=== PATIENT | male | born 1970 | race Caucasian/White ===

== ENCOUNTER 2020-04-24 10:45 | Emergency (ER) | payer BC ==
[2020-04-24] MEDS ORDERED: SODIUM CHLORIDE 0.9% 500 ML 500 ML IV ONE (11:31)
[2020-04-24 11:55] LABS: Basophils % (A) 1 %; Eosinophils % (A) 1 %; HCT 50.1 % (39.0-53.0); HGB 16.3 gm/dL (13.0-17.5); Lymphocytes # (A) 0.8 k/uL (1.0-4.8); Lymphocytes % (A) 23 %; MCH 30.2 pg (25.0-35.0); MCHC 32.5 g/dL (31.0-37.0); MCV 92.7 fL (80.0-100.0); Mean Platelet Volume 7.8; Monocytes # (A) 0.3 k/uL (0-1.0); Monocytes % (A) 9 %; Neutrophils # (A) 2.3 k/uL (1.3-7.7); Neutrophils % (A) 64 %; Platelet Count 144 k/uL (150-450); RDW 12.8 % (11.5-15.5); WBC 3.6 k/uL (3.8-10.6)
--- NOTE | 2020-04-24 11:55 | XR ---
EXAMINATION TYPE: XR chest 2V DATE OF EXAM: 04/24/2020 COMPARISON: NONE HISTORY: Chest pain TECHNIQUE: Frontal and lateral views of the chest are obtained. FINDINGS: There is no focal air space opacity. No evidence for pneumothorax. No pleural effusion. The cardiac silhouette size is within normal limits. The osseous structures are grossly intact. IMPRESSION: 1. No acute cardiopulmonary process.
[2020-04-24 12:13] LABS: ALT 26 U/L (4-49); AST 26 U/L (17-59); African American GFR (CKD) >90 (>60 ml/min/1.73 sqM); Albumin 4.3 g/dL (3.5-5.0); Alkaline Phosphatase 106 U/L (38-126); Anion Gap 7 mmol/L; Blood Urea Nitrogen 13 mg/dL (9-20); Calcium 9.3 mg/dL (8.4-10.2); Carbon Dioxide 27 mmol/L (22-30); Chloride 104 mmol/L (98-107); Glucose 95 mg/dL (74-99); Non-African American GFR(CKD) >90 (>60 ml/min/1.73 sqM); Potassium 4.3 mmol/L (3.5-5.1); Sodium 138 mmol/L (137-145); Total Bilirubin 0.5 mg/dL (0.2-1.3)
--- NOTE | 2020-04-24 12:16 | ED ---
General Adult HPI - General Source: patient, RN notes reviewed, old records reviewed Mode of arrival: ambulatory Limitations: no limitations <Antwan Kaye - Last Filed: 04/24/20 12:36> <Jesenia Prajapati - Last Filed: 04/27/20 00:39> - General Chief complaint: Shortness of Breath Stated complaint: covid symtoms Time Seen by Provider: 04/24/20 11:01 - History of Present Illness Initial comments: 49-year-old male patient presents to ED for evaluation of possible coronavirus. 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 This was about 2 weeks ago. Patient reports that he drove from [place]. Reports that he has had some mild coughing and some sweats at night for the last 3 days. Reports mild waxing and waning headache. Denies any other acute complaints. Denies any chest pain or shortness of breath. Systemic: Pt denies fatigue,rash. Pt denies weakness, night sweats, weight loss. Neuro: Pt denies headache, visual disturbances, syncope or pre-syncope. HEENT: Pt denies ocular discharge or irritation, otalgia, rhinorrhea, pharyngitis or notable lymphadenopathy. Cardiopulmonary: Pt denies chest pain, SOB, heart palpitations, dyspnea on exert ion. Abdominal/GI: Pt denies abdominal pain, n/v/d. : Pt denies dysuria, burning w/ urination, frequency/urgency. Denies new onset urinary or bowel incontinence. MSK: Pt denies myalgia, loss of strength or function in extremities. Neuro: Pt denies new onset weakness, paresthesias. (Antwan Kaye) - Related Data Home Medications Medication Instructions Recorded Confirmed Acetaminophen Tab [Tylenol] 650 mg PO Q8H PRN 04/24/20 04/24/20 Ibuprofen [Motrin Ib] 400 mg PO Q8H PRN 04/24/20 04/24/20 Allergies Allergy/AdvReac Type Severity Reaction Status Date / Time No Known Allergies Allergy Verified 04/24/20 12:03 Review of Systems ROS Other: All systems not noted in ROS Statement are negative. <Antwan Kaye - Last Filed: 04/24/20 12:36> ROS Other: All systems not noted in ROS Statement are negative. <Jesenia Prajapati - Last Filed: 04/27/20 00:39> ROS Statement: Those systems with pertinent positive or pertinent negative responses have been documented in the HPI. Past Medical History Past Medical History: No Reported History Additional Past Medical History / Comment(s): pyloric stenosis History of Any Multi-Drug Resistant Organisms: None Reported Additional Past Surgical History / Comment(s): Right Wrist, Left Knee Past Psychological History: No Psychological Hx Reported Smoking Status: Never smoker Past Alcohol Use History: Daily Past Drug Use History: None Reported <Antwan Kaye - Last Filed: 04/24/20 12:36> General Exam Limitations: no limitations <Antwan Kaye - Last Filed: 04/24/20 12:36> - General Exam Comments Initial Comments: Constitutional: NAD, AOX3, Pt has pleasant affect. HEENT: NC/AT, trachea midline, neck supple, no lymphadenopathy. Posterior pharynx non erythematous, without exudates. External ears appear normal, without discharge. Mucous membranes moist. Eyes PERRLA, EOM intact. There is no scleral icterus. No pallor noted. Cardiopulmonary: RRR, no murmurs, rubs or gallops, no JVD noted. Lungs CTAB in anterior and posterior bull. No peripheral edema. Neuro: CN II-XII intact. No nuchal rigidity. No raccon eyes, no braden sign, no hemotympanum. No cervical spinal tenderness. MSK: No posterior calf tenderness bilaterally, homans sign negative bilaterally. Posterior tibialis and radial pulse +2 bilaterally. Sensation intact in upper and lower extremities. Full active ROM in upper and lower extremities, 5/5 stregnth. (Antwan Kaye) Course Vital Signs 04/24/20 04/24/20 10:55 12:30 Temperature 98.1 F 98.0 F Pulse Rate 91 80 Respiratory 16 14 Rate Blood Pressure 116/83 120/78 O2 Sat by Pulse 99 98 Oximetry Medical Decision Making - Lab Data Result diagrams: 04/24/20 11:47 04/24/20 11:47 <Antwan Kaye - Last Filed: 04/24/20 12:36> - Lab Data Result diagrams: 04/24/20 11:47 04/24/20 11:47 <Jesenia Prajapati - Last Filed: 04/27/20 00:39> - Medical Decision Making 49-year-old male patient presents ED for evaluation of possible coronavirus. Physical exam didn't display acute pathology. Laboratory investigations are notable for mild lymphocytopenia leukopenia. CMP unremarkable. Chest: Negative for acute process. Patient has for coronavirus advises self quarantined follow up with primary care provider and return for worsening symptoms. Case discussed with Dr. Prajapati. (Antwan Kaye) I was available for consultation in the emergency department. The history and physical exam were done by the midlevel provider. I was consulted for this patients care. I reviewed the case with the midlevel provider and based on their presentation of the patient, I agree with the assessment, medical decision making and plan of care as documented. Chart was dictated using evocatal dictation software. Attempts were made to correct any dictation errors however some typographical errors may persist. Patient was seen during a national state of emergency due to the Covid-19 pandemic. (Jesenia Prajapati) - Lab Data Lab Results 04/24/20 04/24/20 04/24/20 Range/Units 11:47 11:47 11:47 WBC 3.6 L (3.8-10.6) k/uL RBC 5.40 (4.30-5.90) m/uL Hgb 16.3 (13.0-17.5) gm/dL Hct 50.1 (39.0-53.0) % MCV 92.7 (80.0-100.0) fL MCH 30.2 (25.0-35.0) pg MCHC 32.5 (31.0-37.0) g/dL RDW 12.8 (11.5-15.5) % Plt Count 144 L (150-450) k/uL Neutrophils % 64 % Lymphocytes % 23 % Monocytes % 9 % Eosinophils % 1 % Basophils % 1 % Neutrophils # 2.3 (1.3-7.7) k/uL Lymphocytes # 0.8 L (1.0-4.8) k/uL Monocytes # 0.3 (0-1.0) k/uL Eosinophils # 0.0 (0-0.7) k/uL Basophils # 0.0 (0-0.2) k/uL Sodium 138 (137-145) mmol/L Potassium 4.3 (3.5-5.1) mmol/L Chloride 104 (98-107) mmol/L Carbon Dioxide 27 (22-30) mmol/L Anion Gap 7 mmol/L BUN 13 (9-20) mg/dL Creatinine 0.82 (0.66-1.25) mg/dL Est GFR (CKD-EPI)AfAm >90 (>60 ml/min/1.73 sqM) Est GFR (CKD-EPI)NonAf >90 (>60 ml/min/1.73 sqM) Glucose 95 (74-99) mg/dL Calcium 9.3 (8.4-10.2) mg/dL Total Bilirubin 0.5 (0.2-1.3) mg/dL AST 26 (17-59) U/L ALT 26 (4-49) U/L Alkaline Phosphatase 106 (38-126) U/L Total Protein 7.0 (6.3-8.2) g/dL Albumin 4.3 (3.5-5.0) g/dL Coronavirus (PCR) Detected H (Not Detected) Disposition Is patient prescribed a controlled substance at d/c from ED?: No <Antwan Kaye - Last Filed: 04/24/20 12:36> <Jesenia Prajapati - Last Filed: 04/27/20 00:39> Clinical Impression: Cough Narrative: possible covid (Antwan Kaye) Disposition: HOME SELF-CARE Condition: Stable Instructions (If sedation given, give patient instructions): Acute Cough (ED) Additional Instructions: Follow-up with primary care provider tomorrow. Return to ER if any worsening symptoms. Self quarantine until result of coronavirus test. Referrals: hE Mark DO [Primary Care Provider] - 1-2 days
[2020-04-24 12:35] VITALS: BP 120/78; PULSE 80; RESP 14; TEMP 98
== END 2020-04-24 12:30 | disposition home or self-care (01) ==
LOC: EC 10:45
DX: U07.1 COVID-19 (principal); D72.810 Lymphocytopenia; D72.819 Decreased white blood cell count, unspecified
CPT/HCPCS: 36415; 80053; 85025; 71046; 99285; 96360; U0003